=== PATIENT | male | born 1960 | race Hispanic/Latino ===

== ENCOUNTER 2019-03-15 18:30 | Emergency (ER) | payer OTHER ==
[2019-03-15 19:12] LABS: BASOPHILS % (AUTO) 0.5 % (0.0-5.0); EOSINOPHILS % (AUTO) 3.5 % (0.0-8.0); HEMATOCRIT 42.5 % (42-54); LYMPHOCYTES % (AUTO) 23.2 % (21.0-51.0); MEAN CORPUSCULAR HEMOGLOBIN 29.9 pg (27.0-33.0); MEAN CORPUSCULAR HGB CONC 33.9 g/dL (32.0-36.0); MONOCYTES % (AUTO) 7.2 % (3.0-13.0); NEUTROPHILS % (AUTO) 65.6 % (40.0-77.0); NUCLEATED RED BLOOD CELLS 0.1 % (0.0-0.19); PLATELET COUNT (AUTO) 177 K/uL (130-400); RED BLOOD CELL COUNT(AUTO) 4.84 MIL/uL (4.50-6.20); RED CELL DISTRIBUTION WIDTH 14.2 % (11.0-15.5); WHITE BLOOD COUNT (AUTO) 5.8 K/uL (4.8-10.8)
[2019-03-15 19:16] LABS: POTASSIUM 4.2 mmol/L (3.5-5.1)
[2019-03-15 19:20] LABS: ALBUMIN 3.7 g/dL (3.5-5.0); BILIRUBIN,TOTAL 0.3 mg/dL (0.2-1.0); TOTAL PROTEIN, SERUM 6.3 g/dL (6.0-8.3)
[2019-03-15 20:11] LABS: APPEARANCE,URINE Clear (CLEAR); BILIRUBIN,URINE Negative (NEGATIVE); COLOR,URINE Yellow (YELLOW); GLUCOSE, URINE (UA) Negative (NEGATIVE); KETONES,URINE Negative (NEGATIVE); LEUKOCYTE ESTERASE ,URINE Negative (NEGATIVE); NITRATE,URINE Negative (NEGATIVE); OCCULT BLOOD,URINE Negative (NEGATIVE); PROTEIN,URINE Negative (NEGATIVE)
[2019-03-15 21:35] LABS: HEMATOCRIT 40.8 % (42-54)
[2019-03-15] MEDS ORDERED: FAMOTIDINE/PF 20 MG/2 ML VIAL IV ONE (21:54)
== END 2019-03-15 22:42 | disposition home or self-care (01) ==
LOC: EDH 18:30
DX: K92.2 Gastrointestinal hemorrhage, unspecified (principal); R10.13 Epigastric pain; E11.9 Type 2 diabetes mellitus without complications; Z88.1 Allergy status to other antibiotic agents; I10 Essential (primary) hypertension; E78.5 Hyperlipidemia, unspecified; Z98.890 Other specified postprocedural states
CPT/HCPCS: 36415; 71045; 74176; 80053; 81003; 82150; 82270; 82550; 83690; 84484; 85014; 85018; 85025; 86677; 93005; 96374; 99285; J3490

== ENCOUNTER 2025-01-05 08:17 | Emergency (ER) | payer OTHER ==
[~2025-01-05] VITALS: Ht 175.3 cm; Wt 72.6 kg
[~2025-01-05 08:17] MED LIST: AEC81 PO; ATOR40TA69 PO; CARV25TA PO; CLOP-31 PO; FINA5TAB41 PO; HYDR50TA37 PO; LOSA100T59 PO; TAMS-1 PO; [UNRECOGNIZED DRUG - CODE] PO
--- NOTE | 2025-01-05 09:51 | HMCIMG ---
RIGHT SHOULDER RADIOGRAPHS - 2-3 VIEWS INDICATION: Pain COMPARISON: None FINDINGS: No fracture or dislocation identified. Acromioclavicular and glenohumeral alignments are well maintained. Visible portions of the right clavicle are intact. Nominal acromioclavicular joint osteoarthropathy. IMPRESSION: No evidence for fracture or dislocation.
--- NOTE | 2025-01-05 09:51 | HMCIMG ---
LEFT HIP, INCLUDING AP PELVIS, RADIOGRAPHS - 2 VIEWS INDICATION: Pain COMPARISON: None FINDINGS: Abduction view of the left hip and single AP view of the pelvis. No acute fracture or subluxation identified. Both femoral heads are well formed without osteochondral erosion or radiographic evidence for avascular necrosis. No radiopaque foreign body noted. IMPRESSION: No evidence for fracture or dislocation.
--- NOTE | 2025-01-05 09:56 | ERN ---
General Chief Complaint: Mechanical Fall Stated Complaint: SLIP FALL IN SHOWER Time Seen by MD: 08:22 Source: patient History of Present Illness Initial Comments 64-year-old gentleman coming in to be evaluated after he had a slip in his shower. Per patient he slipped earlier in strained his left hip and right shoulder. He states he did not hit his head and did not lose consciousness. Allergies: Coded Allergies: sulfamethoxazole (Unverified Allergy, Unknown, 03/16/19) trimethoprim (Unverified Allergy, Unknown, 03/16/19) Home Meds Active Scripts Aspirin (ASPIRIN 81 MG ECTAB) 81 Mg Ectab, 81 MG PO DAILY, #30 TAB.EC Prov[facility]24 Clopidogrel Bisulfate (Plavix) 75 Mg Tablet, 75 MG PO DAILY, #30 TAB Prov[facility] 08/23/24 Atorvastatin Calcium (LIPITOR) 40 Mg Tablet, 40 MG PO HS, #30 TAB Prov[facility] 08/23/24 Reported Medications Losartan Potassium (Losartan Potassium) 100 Mg Tablet, 1 TAB PO DAILY 08/21/24 Finasteride (Finasteride) 5 Mg Tablet, 1 TAB PO DAILY 08/21/24 Hydralazine HCl (Hydralazine HCl) 50 Mg Tablet, 50 MG PO BID, TAB 08/21/24 Mifepristone (Korlym) 300 Mg Tablet, 600 MG PO DAILY, TAB 08/21/24 Tamsulosin HCl (Flomax) 0.4 Mg Cap.er.24h, 0.4 MG PO DAILY, CAPSULE.DR 08/21/24 Carvedilol (Carvedilol) 25 Mg Tablet, 25 MG PO BID, TAB 08/21/24 Past Medical History Past Medical History: Diabetes-Type II, High Cholesterol, Heart Disease, Hypertension, [place], Stroke Past Surgical History: Other Surgical History Other: KNEE SX, CARIAC STENTS ROS Dictation CONSTITUTIONAL: No chills, no fever, no weakness, no diaphoresis, no malaise. HEAD/FACE: No signs of trauma. EENT: No eye pain, no blurred vision, no tearing, no double vision, no ear pain, no ear discharge, no nose pain, no nasal congestion, no throat pain, no throat swelling, no mouth pain. RESPIRATORY: No cough, no orthopnea, no SOB, no stridor, no wheezing. CARDIOVASCULAR: No chest pain, no edema, no palpitations, no syncope. GASTROINTESTINAL/ABDOMINAL: No abdominal pain, no constipation, no diarrhea, no nausea, no vomiting. GENITOURINARY: No abnormal discharge, no dysuria, no frequent urination, no hematuria. No complaints of pain in the genitals. MUSCULOSKELETAL: No back pain, no gout, joint pain, no joint swelling, muscle pain, no muscle stiffness, no neck pain. INTEGUMENTARY: No change in color, no change in hair/nails, no dryness, no lesion, no lumps, no rash. NEUROLOGICAL/PSYCH: No anxiety, not depressed, no emotional problem, no headache, no numbness, no pre-existing deficit, no history of seizures, no tremors, no weakness. HEMATOLOGIC/LYMPHATIC: Not anemic, no history of blood clots, no apparent bleeding, no bruising, glands not swollen. All Systems Negative, Except as Noted. Physical Exam Physical Exam Dictation VITAL SIGNS: Reviewed. GENERAL APPEARANCE: Alert, oriented x3, no acute distress, obese. HEAD AND FACE: Non-traumatic. EYES: PERRL, pink conjunctivas, eyelid no trauma, anterior chamber clear. EARS: Pinnas intact and no signs of trauma or erythema. Ear canals clear and no discharge. TMs no erythema. NOSE: No discharge, no bleeding. OROPHARYNX: Mouth normal, teeth no caries, tongue pink. Pharynx clear, no erythema. Tonsils no exudates, no abscesses noted. Mucous membrane moist. NECK: Supple, non-tender, no thyromegaly, no masses, no JVD, no bruits. BREAST: Deferred. CHEST: No tenderness, no crepitus, no paradoxical movement, no retractions. LUNGS: Clear, well-ventilated, symmetric, no rales, no wheezing, no rhonchi, no stridor, good breath sounds bilaterally. HEART: Regular rate, regular rhythm, no murmur, no gallops. VASCULAR: No peripheral edema. ABDOMEN: Soft, positive bowel sounds, nondistended, no guarding, nontender, no rebound, no masses no hepatomegaly, no splenomegaly, no Weiner's sign, no hernias. RECTAL: Deferred. GENITAL: Deferred. NEUROLOGICAL: Normal speech, gross motor function intact, gross sensory function intact. MUSCULOSKELETAL: Neck nontender, full range of motion, back nontender, full range of motion. EXTREMITIES: Nontender, full range of motion. Right shoulder pain on palpation no limited motion, left hip discomfort on palpation able to ambulate SKIN: Color pink, dry, no turgor, no rash, no lacerations, no abrasions, no contusions. LYMPHATICS: Deferred. Results Laboratory and Microbiology Labs Reviewed?: Yes EKG/XRAY/US/CT/MRI X-RAY Comment [place] [address] [id number] IMAGING REPORT Signed PATIENT: JAMAL ELIZABETH MR#: [id number] : 1960 SEX: M AGE: 64 LOCATION: [facility] ORDER 1 STATUS: REG ER REPORT#: [id number] SERVICE 0 REASON: fall ORDERING PHYSICIAN: CLARICE DIAZ MD PROCEDURE: HIP U 2V L - HIP UNILAT 2-3VW LEFT LEFT HIP, INCLUDING AP PELVIS, RADIOGRAPHS - 2 VIEWS INDICATION: Pain COMPARISON: None FINDINGS: Abduction view of the left hip and single AP view of the pelvis. No acute fracture or subluxation identified. Both femoral heads are well formed without osteochondral erosion or radiographic evidence for avascular necrosis. No radiopaque foreign body noted. IMPRESSION: No evidence for fracture or dislocation. DICTATED BY: MATILDE SANTOS MD DATE: 01/05/25947 ELECTRONICALLY SIGNED BY: MATILDE SANTOS MD DATE: 01/05/25950 [place] [address] [id number] IMAGING REPORT Signed PATIENT: JAMAL ELIZABETH MR#: [id number] : 1960 SEX: M AGE: 64 LOCATION: [facility] ORDER 1 STATUS: [facility] REPORT#: [id number] SERVICE 0 REASON: fall ORDERING PHYSICIAN: CLARICE DIAZ MD PROCEDURE: SHOL 2V RT - SHOULDER COMP 2+VWS RT RIGHT SHOULDER RADIOGRAPHS - 2-3 VIEWS INDICATION: Pain COMPARISON: None FINDINGS: No fracture or dislocation identified. Acromioclavicular and glenohumeral alignments are well maintained. Visible portions of the right clavicle are intact. Nominal acromioclavicular joint osteoarthropathy. IMPRESSION: No evidence for fracture or dislocation. DICTATED BY: MATILDE SANTOS MD DATE: 01/05/25947 ELECTRONICALLY SIGNED BY: MATILDE SANTOS MD DATE: 01/05/25950 [facility] MDM: Differential diagnosis: Fall, shoulder strain, hip strain, Patient is a 64-year-old male coming in to be evaluated for right shoulder and left hip discomfort. X-ray did not disclose acute findings. Patient was advised appropriate follow up with PCP for ongoing evaluation and management. Patient will be discharged in stable condition. ED Course Orders Procedure Category Date Status Time Hip Unilat 2-3vw Left RAD 01/05/25 Resulted 08:31 Shoulder Comp 2+Vws Rt RAD 01/05/25 Resulted 08:31 Naproxen (Naprosyn) PHA 01/05/25 In Process 10:00 Current Medications Medications (Trade) Dose Ordered Sig/Nora Route PRN Reason Start Time Stop Time Status Last Admin Dose Admin Naproxen (Naprosyn) 500 mg ONCE ONCE PO 01/05/25 10:00 01/05/25 10:01 Vital Signs Date Time Temp Pulse Resp B/P (MAP) Pulse Ox O2 Delivery O2 Flow Rate FiO2 01/05/25 08:23 99.5 70 16 123/72 95 Room Air 0 DX & DISP Disposition: Discharge Departure Impression: Primary Impression: Accident due to mechanical fall without injury Additional Impressions: Right shoulder strain, Hip strain Condition: Stable Additional Instructions: FOLLOW-UP WITH PRIMARY CARE PROVIDER IN 1 TO 2 DAYS. TAKE MEDICATIONS DIRECTED HERE IN THE EMERGENCY ROOM. OKAY TO CONTINUE HOME MEDICATIONS UNLESS OTHERWISE DISCUSSED DURING YOUR VISIT IN THE EMERGENCY ROOM TODAY. RETURN TO YOUR NEAREST EMERGENCY ROOM IF SYMPTOMS WORSEN OR IF THERE IS NO IMPROVEMENT. CALL 911 IF YOU NEED IMMEDIATE ASSISTANCE. TAKE TYLENOL HYHK-HSP-DYLCOBW NEEDED AND IF NO CONTRAINDICATIONS ARE PRESENT. INCREASE ORAL HYDRATION. A WOUND CULTURE OR URINE CULTURE WAS ORDERED HERE IN THE EMERGENCY ROOM DEPARTMENT PLEASE FOLLOW-UP WITH PRIMARY CARE PROVIDER AND ADVISE THEM TO GET REPEAT PORTS FROM OUR FACILITY. IF YOU HAD ANY [place] WRAP/SPLINTS THAT WERE APPLIED HERE, PLEASE DO NOT REMOVE THEM UNTIL YOU SEE YOUR PRIMARY CARE OR SPECIALTY. Referrals: Referrals: SELF,REFERRAL (PCP) CRISSY BURNS MD Time of Disposition: 09:59 CLARICE DIAZ MD Jan 05, 2025 09:56
[2025-01-05] MEDS: NAPROXEN 500 MG TABLET PO ONE (10:09)
[2025-01-05 10:12] VITALS: BP 125/73; PULSE 72; RESP 16; TEMP 99; O2SAT 95
== END 2025-01-05 10:32 | disposition home or self-care (01) ==
LOC: EDH 08:17
DX: S46.911A Strain of unspecified muscle, fascia and tendon at shoulder and upper arm level, right arm, initial encounter (principal); E11.9 Type 2 diabetes mellitus without complications; E78.00 Pure hypercholesterolemia, unspecified; I10 Essential (primary) hypertension; Z79.02 Long term (current) use of antithrombotics/antiplatelets; Z79.82 Long term (current) use of aspirin; Z79.899 Other long term (current) drug therapy; Z86.73 Personal history of transient ischemic attack (TIA), and cerebral infarction without residual deficits; Z88.1 Allergy status to other antibiotic agents; Z88.2 Allergy status to sulfonamides; W18.2XXA Fall in (into) shower or empty bathtub, initial encounter; Y93.E1 Activity, personal bathing and showering; Y92.89 Other specified places as the place of occurrence of the external cause; Y99.8 Other external cause status
CPT/HCPCS: 73030; 73502; 99284